=== PATIENT | female | born 1955 | race Caucasian/White ===

== ENCOUNTER → 2017-08-04 | Outpatient (CLI) | payer OTHER ==
[~2017-08-04] MED LIST: CITRATE OF MAG296 ML PO; DIGESTIVE EN1 TABLET PO; ESTRACE42.5 GM VG; JOINT SUPPORT1 EACH PO; OLIVE LEAF EXT250 MG PO; TURMERIC500 M1 PO; VITAMIN C1000 MG PO; VITAMIN D2000 UNIT PO
== END | disposition home or self-care (01) ==
LOC: RES 07-14 09:00
DX: J98.4 Other disorders of lung (principal)
CPT/HCPCS: 94070; 94726; 94729